=== PATIENT | male | born 1955 | race Caucasian/White ===

== ENCOUNTER 2019-05-06 08:24 | Emergency (ER) | payer BC ==
[~2019-05-06] VITALS: Wt 104.1 kg
[~2019-05-06 08:24] MED LIST: ASPIR LOW81 MG PO; DILTIAZEM240 M1 PO; HCTZ 25MG25 MG PO
[2019-05-06] MEDS ORDERED: LOSARTAN POTASS25 MG PO (08:33)
[2019-05-06] MEDS ORDERED: PRILOSEC 20MG20 MG PO (08:34)
[2019-05-06] MEDS ORDERED: DILT-XR240 MG PO (08:34)
[2019-05-06 08:52] LABS: ALBUMIN 4.7 g/dL (3.4-4.8); POTASSIUM 3.1 mmol/L (3.5-5.1); SODIUM 144 mmol/L (136-145)
[2019-05-06 08:53] LABS: CALCIUM 9.7 mg/dL (8.3-10.5)
[2019-05-06 08:54] LABS: GLUCOSE 144 mg/dL (75-110)
[2019-05-06 08:55] LABS: TOTAL PROTEIN 7.9 g/dL (6.2-8.1)
[2019-05-06 08:56] LABS: CARBON DIOXIDE 23 mmol/L (23-31); TOTAL BILIRUBIN 0.4 mg/dL (0.2-1.2)
[2019-05-06 08:59] LABS: EOS # 0.2 (0.04-0.40); EOS % 1.8 % (0.0-4.0); HEMATOCRIT 49.2 % (42.0-52.0); HEMOGLOBIN 16.3 g/dL (13.5-18.0); MEAN CELL VOLUME 86 fl (78-100); MEAN CORPUSCULAR HEMOGLOBIN 28 pg (27-31); MEAN CORPUSCULAR HGB CONC 33 g/dL (33-37); MONO # 1.1 (0.20-0.80); NEU # 4.4 (1.40-6.50); PLATELET COUNT 278 K/mm3 (130-400); RED BLOOD COUNT 5.75 M/mm3 (4.20-5.60); RED CELL DISTRIBUTION WIDTH 14.1 % (11.5-14.5); WHITE BLOOD COUNT 9.6 K/mm3 (4.8-10.8)
[2019-05-06 09:00] LABS: AST-SGOT 28 U/L (5-34)
[2019-05-06 09:01] LABS: ALT/SGPT 30 U/L (0-55)
[2019-05-06 09:07] LABS: TROPONIN-I < 0.03 ng/mL (<0.030)
[2019-05-06 09:27] LABS: MAGNESIUM 1.91 mg/dL (1.60-2.60)
[2019-05-06 11:34] VITALS: BP 135/78
== END 2019-05-06 10:01 | disposition short-term general hospital (02) ==
LOC: ED 08:24
PROVIDERS: Nurse Practitioner Family
DX: I21.09 ST elevation (STEMI) myocardial infarction involving other coronary artery of anterior wall (principal); I46.9 Cardiac arrest, cause unspecified; I10 Essential (primary) hypertension; Z79.82 Long term (current) use of aspirin
CPT/HCPCS: J0171; J0282; J1644; J2270; J2405; J3101; J3480; J7030; J7060

== ENCOUNTER 2019-08-16 09:30 | Outpatient (RCR) | payer BC ==
[~2019-08-16 09:30] MED LIST changes: +DILT-XR240 MG PO; +LOSARTAN POTASS25 MG PO; +PRILOSEC 20MG20 MG PO
== END 2019-08-16 10:00 | disposition home or self-care (01) ==
LOC: CARDREHAB 09:30
DX: Z48.812 Encounter for surgical aftercare following surgery on the circulatory system (principal); I25.2 Old myocardial infarction; I25.10 Atherosclerotic heart disease of native coronary artery without angina pectoris; I10 Essential (primary) hypertension; E78.2 Mixed hyperlipidemia; E87.4 Mixed disorder of acid-base balance; M62.89 Other specified disorders of muscle; Z79.82 Long term (current) use of aspirin; Z79.899 Other long term (current) drug therapy; Z95.5 Presence of coronary angioplasty implant and graft

== ENCOUNTER → 2021-08-03 | Outpatient (CLI) | payer MEDICARE | LOC: RAD 08:53 | DX: Z13.6 Encounter for screening for cardiovascular disorders (principal) ==